=== PATIENT | male | born 1945 | race Caucasian/White ===

== ENCOUNTER 2016-10-16 08:06 | Emergency (ER) | payer OTHER ==
[~2016-10-16] VITALS: Ht 175.3 cm; Wt 70.3 kg
--- NOTE | 2016-10-16 08:34 | ED MVC/FALL/TRAUMA COMPLAINT ---
History of Present Illness General Chief Complaint: Fall Stated Complaint: BACK PAIN, S/P FALL +HEADSTRIKE, -LOC Source: patient, family, old records Exam Limitations: no limitations Vital Signs & Intake/Output Vital Signs & Intake/Output Vital Signs Date Time Temp Pulse Resp B/P B/P Pulse O2 O2 Flow FiO2 Mean Ox Delivery Rate 10/16 1125 97.0 60 20 156/82 100 Room Air 10/16 0951 96.7 64 20 160/80 100 Room Air 10/16 0815 97.2 60 16 129/61 100 Allergies Coded Allergies: No Known Allergies (10/16/16) Reconcile Medications Acetaminophen (Mapap) 500 MG TABLET 2 TAB PO BID PRN PAIN (Reported) Aspirin (Aspirin*) 81 MG TAB.CHEW 1 TAB PO DAILY HEART HEALTH (Reported) Atorvastatin Calcium 20 MG TABLET 1 TAB PO DAILY CHOLESTEROL (Reported) Cholecalciferol (Vitamin D3) (Vitamin D3) 5,000 UNIT TABLET 1 TAB PO DAILY VITAMIN SUPPORT (Reported) Dexlansoprazole (Dexilant) 30 MG CAP.DRFredBP 1 CAP PO DAILY GI (Reported) Diphenhydramine HCl (Benadryl) 25 MG CAPSULE 1 CAP PO QPM PRN UNKNOWN ( Reported) Ferrous Sulfate 325 MG (65 MG IRON) TABLET 1 TAB PO DAILY SUPPLEMENT ( Reported) Hydrochlorothiazide 25 MG TABLET 1 TAB PO DAILY WATER RETENTION (Reported) Multivit-Min/FA/Lycopen/Lutein (Centrum Silver Tablet) 0.4 MG-300 MCG-250 MCG TABLET 1 TAB PO DAILY VITAMIN SUPPORT (Reported) Triage Note: PT STATES HE FELL ON HIS BACK WHILE GOING DOWN STAIRS THIS AM ABOUT 0400. PT STATES HE DID HIT HIS HEAD "JUST A LITTLE TAP". PT DENIES LOC. PT STATES IT'S HIS BACK THAT HURTS AND THAT HE HAS ALWAYS HAD BACK PROBLEMS. Triage Nurses Notes Reviewed? yes HPI: Patient got up to go to the bathroom and then tripped over his slipper and fell onto a concrete floor. Patient states he hit his head "a little bit." Patient denies any loss of consciousness. Patient denies any headache or blurry vision. There is no nausea or vomiting. Patient is complaining of diffuse back pain and bilateral shoulder pain. Patient states she suffers from chronic back and shoulder pain but the fall made it worse. There is no radiation of pain. The pain is throbbing in nature. The pain is 6 out of 10 and increases with movement. There is no weakness or numbness. Past History Travel History Traveled to [place] past 21 day No Medical History Any Pertinent Medical History? see below for history Cardiovascular: hypertension, hyperlipidemia Gastrointestinal: GERD Surgical History Surgical History: non-contributory Psychosocial History What is your primary language [place] Citizen Tobacco Use: Quit >30 days ago ETOH Use: occasional use Illicit Drug Use: denies illicit drug use Family History Hx Contributory? No Review of Systems Review of Systems Constitutional: Reports: no symptoms. Eyes: Reports: no symptoms. Ears, Nose, Throat, Mouth: Reports: no symptoms. Respiratory: Reports: no symptoms. Cardiovascular: Reports: no symptoms. Gastrointestinal/Abdominal: Reports: no symptoms. Genitourinary: Reports: no symptoms. Musculoskeletal: Reports: see HPI, back pain, joint pain. Skin: Reports: no symptoms. Neurological/Psychological: Reports: no symptoms. All Other Systems: Reviewed and Negative Physical Exam Physical Exam General Appearance: well developed/nourished, alert, awake Head: atraumatic, normal appearance Eyes: Bilateral: PERRL, EOMI. Ears, Nose, Throat, Mouth: hearing grossly normal, moist mucous membrane Neck: normal inspection, supple, full range of motion, tender lateral, tender midline Respiratory: normal breath sounds, chest non-tender, no respiratory distress, lungs clear Cardiovascular: regular rate/rhythm, normal peripheral pulses Gastrointestinal: normal bowel sounds, soft, non-tender, no organomegaly Back: normal inspection, normal range of motion Extremities: normal range of motion Neurologic/Psych: no motor/sensory deficits, awake, alert, oriented x 3, normal mood/affect Skin: intact, normal color, warm/dry Core Measures ACS in differential dx? No Severe Sepsis Present: No Septic Shock Present: No Progress Differential Diagnosis: C/T/L spine injury, ext injury, ICH Plan of Care: Orders Procedure Date/time Status CT HEAD WO IV CONTRAST 10/[address] CERV SPINE WO IV CONTRAST 10/17 835 Active Diagnostic Imaging: Viewed by Me: Radiology Read, CT Scan. Discussed w/RAD: Radiology Read, CT Scan. Radiology Impression: PATIENT: ZIGGY TANG PRESENT AGE: 70 PATIENT ACCOUNT NO: [id number] : 44 LOCATION: [facility] ORDERING PHYSICIAN: HOLLIS ANDREWS MD SERVICE DATE: 10/16/16 EXAM TYPE: RAD - XRY-AP PELVIS; XRY-CHEST XRAY, ONE VIEW ONLY; XRY-SHOULDER COMPLETE- LEFT; XRY-SHOULDER COMPLETE-RIGHT; XRY-THORACOLUMBAR SPINE EXAMINATION: XR CHEST XR THORACOLUMBAR SPINE XR SHOULDER, RIGHT XR SHOULDER, LEFT XR PELVIS CLINICAL INFORMATION: 70-year-old male with pain after fall. COMPARISON: None TECHNIQUE: Thoracic spine, AP and lateral views and lumbar spine, AP and lateral views Chest, AP view Right shoulder, 4 views Left shoulder, 4 views Pelvis, AP view FINDINGS: Chest: Lungs are symmetrically expanded and clear. Cardiac silhouette is normal in size. The mediastinal, hilar and diaphragmatic contours are normal. No pneumothorax or pleural effusion. Bone density appears diffusely decreased. Old, healed fracture of the mid third of the right clavicle. Thoracic spine: Bone density appears diffusely decreased. No acute fracture or malalignment. Multilevel disc space narrowing and osteophyte formation of the degenerated spine. No paraspinal soft tissue swelling. Lumbar spine: Bone density appears diffusely decreased. Normal segmentation and normal lordotic curvature of the lumbar spine. L1-L2 [id number] loss of disc space, vacuum disc phenomenon, osteophyte formation and mild concavity of the L2 superior endplate (likely chronic). No acute fracture lucencies are identified. Degenerative disc space narrowing, vacuum disc phenomenon, endplate sclerosis and osteophytosis of L3-L4 L4-L5 and L5-S1. Minimal degenerative retrolisthesis of L4 on L5. Sacrum and sacroiliac joints are unremarkable. Pelvis: Bone density appears diffusely decreased. The osseous pelvic ring is intact. Bones have normal alignment. The articular cartilage space of each hip is maintained. Right shoulder: Bones have normal alignment at the acromioclavicular and glenohumeral joints. Mild osteophyte formation of the acromioclavicular joint. Old, healed fracture of the mid third of the right clavicle. Left shoulder: Mild osteoarthrosis of the acromioclavicular joint. Bones have normal alignment at the acromioclavicular and glenohumeral joints. No acute fracture, subluxation or focal soft tissue swelling. IMPRESSION: 1. No acute radiographic findings in the degenerated thoracolumbar spine. The mild concavity of the L2 superior endplate is likely chronic and related to the severe degenerative disc disease of L1-L2 . No acute fracture lucencies are identified within anterior or posterior elements of the spine. 2. Old, healed fracture of the mid third of the right clavicle. 3. No acute osseous injury within the pelvis. 4. No acute fracture or malalignment at either shoulder. DICTATED BY: AGATA REARDON MD DATE/TIME DICTATED:10/16/16952 DIAL POLISHER:DANNY DATE/TIME TRANSCRIBED:10/16/16952 CONFIDENTIAL, DO NOT COPY WITHOUT APPROPRIATE AUTHORIZATION. <Electronically signed in Other Vendor System> SIGNED BY: AGATA REARDON MD 10/16/16 1005, PATIENT: ZIGGY TANG PRESENT AGE: 70 PATIENT ACCOUNT NO: [id number] : 44 LOCATION: [facility] ORDERING PHYSICIAN: HOLLIS ANDREWS MD SERVICE DATE: 10/16/16 EXAM TYPE: CAT - CT CERV SPINE WO IV CONTRAST; CT HEAD WO IV CONTRAST EXAMINATION: CT HEAD W/O IV CONTRAST CT CERVICAL SPINE W/O IV CONTRAST CLINICAL INFORMATION: 70-year-old male with head injury and pain after fall. COMPARISON: None TECHNIQUE: Head - Contiguous axial imaging of the head was performed from the skull base to the vertex without the administration of intravenous contrast, and axial images are reconstructed at 0.625 mm, 2.5 mm and 5 mm slice thickness. Cervical spine - A volumetric, helical CT acquisition of the cervical spine was obtained without contrast; in addition to the standard set of axial images, multiplanar reformatted images were provided in the coronal and sagittal imaging planes. DLP: 985 mGy-cm (total ) FINDINGS: HEAD: Mild atherosclerotic calcification of vertebral arteries and cavernous carotid arteries. Old lacunar infarctions of the right caudate head and right lentiform nucleus. No evidence of acute intracranial hemorrhage, major vascular territory infarction, focal mass effect or midline shift. Granados to white matter differentiation is well preserved. The ventricles have normal size and configuration. Incidentally noted is prominent choroidal calcification within the atria of the lateral ventricles. There are no extra-axial fluid collections. The calvarium is intact and the mastoid air cells and middle ear cavities are well aerated. Incidentally noted is mucosal thickening of bilateral ethmoid air cells and mucous retention cysts within the sphenoid sinuses. The visualized orbits and globes are intact. There is osteoarthrosis of the left temporomandibular joint. CERVICAL SPINE: There is normal curvature of the cervical spine. The occipital condyles, atlas, axis and atlantoaxial articulation are intact. The cervical vertebral bodies have normal height and alignment. No prevertebral soft tissue swelling. There is degenerative osseous spurring at the atlantoaxial articulation. At C5-C6, there is disc space narrowing, endplate sclerosis, Schmorl's node formation, and traction osteophyte formation. At C6-C7, there is severe loss of disc space, endplate irregularity, endplate sclerosis, Schmorl's node formation and osteophyte formation, and small posterior disc osteophyte complex produces minimal indentation upon the ventral surface of the thecal sac. No significant narrowing of the central canal or neural foramina. There is mild concavity of T1 and T2 vertebral endplates without evidence of acute fracture in the examined upper thoracic spine. There is an old, healed fracture of the mid right clavicle. Paraseptal emphysema at the visualized lung apices. Thyroid gland is unremarkable. IMPRESSION: 1. No acute intracranial pathology. 2. No acute fracture or malalignment in the degenerated cervical spine. 3. Old, healed fracture of the mid right clavicle. 4. Paraseptal emphysema in the visualized lung apices. DICTATED BY: AGATA REARDON MD DATE/TIME DICTATED:10/16/161027 DIAL POLISHER:DANNY DATE/TIME TRANSCRIBED:10/16/161027 CONFIDENTIAL, DO NOT COPY WITHOUT APPROPRIATE AUTHORIZATION. <Electronically signed in Other Vendor System> SIGNED BY: AGATA REARDON MD 10/16/16 104 Comments: X-ray and CAT scan results have been discussed with the patient and his family. Questions have been answered. Patient ambulated in the emergency department with these walker. Departure Departure Disposition: HOME OR SELF CARE Condition: Stable Clinical Impression Primary Impression: Head injury Secondary Impressions: Back pain Referrals: PATIENT HAS NO PRIMARY CARE DR (PCP/Family) Additional Instructions: RETURN FOR ANY CONCERNS Departure Forms: Customer Survey General Discharge Information
[2016-10-16] MEDS ORDERED: FERROUS SULFAT325 M3 PO (09:57)
[2016-10-16] MEDS ORDERED: MAPAP500 M3 PO (09:58)
[2016-10-16] MEDS ORDERED: DEXILANT30 M1 PO (09:58)
[2016-10-16] MEDS ORDERED: ASPIRIN81 M4 PO (09:59)
[2016-10-16] MEDS ORDERED: ATORVASTATIN CA20 M1 PO (09:59)
[2016-10-16] MEDS ORDERED: HYDROCHLOROTHIA25 M1 PO (10:00)
[2016-10-16] MEDS ORDERED: VITAMIN D35000 UNI1 PO (10:00)
[2016-10-16] MEDS ORDERED: BENADRYL25 MG PO (10:01)
[2016-10-16] MEDS ORDERED: CENTRUM SILVER1 EAC3 PO (10:01)
--- NOTE | 2016-10-16 10:05 | RADIOLOGY REPORT ---
EXAMINATION: XR CHEST XR THORACOLUMBAR SPINE XR SHOULDER, RIGHT XR SHOULDER, LEFT XR PELVIS CLINICAL INFORMATION: 70-year-old male with pain after fall. COMPARISON: None TECHNIQUE: Thoracic spine, AP and lateral views and lumbar spine, AP and lateral views Chest, AP view Right shoulder, 4 views Left shoulder, 4 views Pelvis, AP view FINDINGS: Chest: Lungs are symmetrically expanded and clear. Cardiac silhouette is normal in size. The mediastinal, hilar and diaphragmatic contours are normal. No pneumothorax or pleural effusion. Bone density appears diffusely decreased. Old, healed fracture of the mid third of the right clavicle. Thoracic spine: Bone density appears diffusely decreased. No acute fracture or malalignment. Multilevel disc space narrowing and osteophyte formation of the degenerated spine. No paraspinal soft tissue swelling. Lumbar spine: Bone density appears diffusely decreased. Normal segmentation and normal lordotic curvature of the lumbar spine. L1-L2 [id number] loss of disc space, vacuum disc phenomenon, osteophyte formation and mild concavity of the L2 superior endplate (likely chronic). No acute fracture lucencies are identified. Degenerative disc space narrowing, vacuum disc phenomenon, endplate sclerosis and osteophytosis of L3-L4 L4-L5 and L5-S1. Minimal degenerative retrolisthesis of L4 on L5. Sacrum and sacroiliac joints are unremarkable. Pelvis: Bone density appears diffusely decreased. The osseous pelvic ring is intact. Bones have normal alignment. The articular cartilage space of each hip is maintained. Right shoulder: Bones have normal alignment at the acromioclavicular and glenohumeral joints. Mild osteophyte formation of the acromioclavicular joint. Old, healed fracture of the mid third of the right clavicle. Left shoulder: Mild osteoarthrosis of the acromioclavicular joint. Bones have normal alignment at the acromioclavicular and glenohumeral joints. No acute fracture, subluxation or focal soft tissue swelling. IMPRESSION: 1. No acute radiographic findings in the degenerated thoracolumbar spine. The mild concavity of the L2 superior endplate is likely chronic and related to the severe degenerative disc disease of L1-L2 . No acute fracture lucencies are identified within anterior or posterior elements of the spine. 2. Old, healed fracture of the mid third of the right clavicle. 3. No acute osseous injury within the pelvis. 4. No acute fracture or malalignment at either shoulder.
--- NOTE | 2016-10-16 10:43 | CT SCAN REPORT ---
EXAMINATION: CT HEAD W/O IV CONTRAST CT CERVICAL SPINE W/O IV CONTRAST CLINICAL INFORMATION: 70-year-old male with head injury and pain after fall. COMPARISON: None TECHNIQUE: Head - Contiguous axial imaging of the head was performed from the skull base to the vertex without the administration of intravenous contrast, and axial images are reconstructed at 0.625 mm, 2.5 mm and 5 mm slice thickness. Cervical spine - A volumetric, helical CT acquisition of the cervical spine was obtained without contrast; in addition to the standard set of axial images, multiplanar reformatted images were provided in the coronal and sagittal imaging planes. DLP: 985 mGy-cm (total) FINDINGS: HEAD: Mild atherosclerotic calcification of vertebral arteries and cavernous carotid arteries. Old lacunar infarctions of the right caudate head and right lentiform nucleus. No evidence of acute intracranial hemorrhage, major vascular territory infarction, focal mass effect or midline shift. Granados to white matter differentiation is well preserved. The ventricles have normal size and configuration. Incidentally noted is prominent choroidal calcification within the atria of the lateral ventricles. There are no extra-axial fluid collections. The calvarium is intact and the mastoid air cells and middle ear cavities are well aerated. Incidentally noted is mucosal thickening of bilateral ethmoid air cells and mucous retention cysts within the sphenoid sinuses. The visualized orbits and globes are intact. There is osteoarthrosis of the left temporomandibular joint. CERVICAL SPINE: There is normal curvature of the cervical spine. The occipital condyles, atlas, axis and atlantoaxial articulation are intact. The cervical vertebral bodies have normal height and alignment. No prevertebral soft tissue swelling. There is degenerative osseous spurring at the atlantoaxial articulation. At C5-C6, there is disc space narrowing, endplate sclerosis, Schmorl's node formation, and traction osteophyte formation. At C6-C7, there is severe loss of disc space, endplate irregularity, endplate sclerosis, Schmorl's node formation and osteophyte formation, and small posterior disc osteophyte complex produces minimal indentation upon the ventral surface of the thecal sac. No significant narrowing of the central canal or neural foramina. There is mild concavity of T1 and T2 vertebral endplates without evidence of acute fracture in the examined upper thoracic spine. There is an old, healed fracture of the mid right clavicle. Paraseptal emphysema at the visualized lung apices. Thyroid gland is unremarkable. IMPRESSION: 1. No acute intracranial pathology. 2. No acute fracture or malalignment in the degenerated cervical spine. 3. Old, healed fracture of the mid right clavicle. 4. Paraseptal emphysema in the visualized lung apices.
[2016-10-16 11:25] VITALS: BP 156/82
== END 2016-10-16 11:24 ==
LOC: ERH 08:06
DX: S09.90XA Unspecified injury of head, initial encounter (principal); M54.9 Dorsalgia, unspecified; M25.511 Pain in right shoulder; M25.512 Pain in left shoulder; W18.09XA Striking against other object with subsequent fall, initial encounter; Y93.9 Activity, unspecified; Y92.9 Unspecified place or not applicable
CPT/HCPCS: 72080; 72170; 73030-LT; 73030-RT

== ENCOUNTER 2016-10-28 20:52 | Inpatient (IN) | payer OTHER ==
[~2016-10-28] VITALS: Ht 175.3 cm; Wt 68.0 kg
[~2016-10-28 20:52] MED LIST: ASPIRIN81 M4 PO; ATORVASTATIN CA20 M1 PO; BENADRYL25 MG PO; CENTRUM SILVER1 EAC3 PO; DEXILANT30 M1 PO; FERROUS SULFAT325 M3 PO; HYDROCHLOROTHIA25 M1 PO; MAPAP500 M3 PO; VITAMIN D35000 UNI1 PO
--- NOTE | 2016-10-28 21:50 | ED GI/GU/ABDOMINAL COMPLAINT ---
History of Present Illness General Chief Complaint: Male Genitourinary Problems Stated Complaint: BILATERAL BACK AND FLANK PAIN, BLOOD IN URINE Source: patient Exam Limitations: poor historian Vital Signs & Intake/Output Vital Signs & Intake/Output Vital Signs Date Time Temp Pulse Resp B/P B/P Pulse O2 O2 Flow FiO2 Mean Ox Delivery Rate 10/30 1453 97.1 58 20 142/74 98 Room Air 10/30 1055 62 134/58 10/30 0640 97.8 67 20 178/70 97 Room Air 10/29 2218 97.7 51 20 158/70 97 Room Air ED Intake and Output 10/30 0000 10/29 1200 Intake Total 600 600 Output Total 350 250 Balance 250 350 Intake, IV 500 Intake, Oral 600 100 Output, Urine 350 250 Patient 150 lb 150 lb Weight Weight Reported by Patient Reported by Patient Measurement Method Allergies Coded Allergies: No Known Allergies (10/16/16) Reconcile Medications Acetaminophen (Mapap) 500 MG TABLET 2 TAB PO BID PRN PAIN (Reported) Aspirin (Aspirin*) 81 MG TAB.CHEW 1 TAB PO DAILY HEART HEALTH (Reported) Atorvastatin Calcium 20 MG TABLET 1 TAB PO DAILY CHOLESTEROL (Reported) Cholecalciferol (Vitamin D3) (Vitamin D3) 5,000 UNIT TABLET 1 TAB PO DAILY VITAMIN SUPPORT (Reported) Dexlansoprazole (Dexilant) 30 MG CAP.DRFredBP 1 CAP PO DAILY GI (Reported) Diphenhydramine HCl (Benadryl) 25 MG CAPSULE 1 CAP PO QPM PRN UNKNOWN ( Reported) Ferrous Sulfate 325 MG (65 MG IRON) TABLET 1 TAB PO DAILY SUPPLEMENT ( Reported) Hydrochlorothiazide 25 MG TABLET 1 TAB PO DAILY WATER RETENTION (Reported) Multivit-Min/FA/Lycopen/Lutein (Centrum Silver Tablet) 0.4 MG-300 MCG-250 MCG TABLET 1 TAB PO DAILY VITAMIN SUPPORT (Reported) Triage Note: PT REPORTS BILATERAL LOWER BACK PAIN RADIATING INTO ABDOMEN. PT FELL RECENTLY, BUT UNSURE WHEN. PT IS A POOR HISTORIAN. DENIES PAIN TO PALPATION OF BACK, HIPS, ABDOMEN. REPORTS THAT PAIN IS WORSE WITH MOVEMENT AND TWISTING OF TORSO AND CROSSING LEGS. DENIES PAIN WITH URINATION. STATES HIS PENIS IS BROKEN AND URINE SPRAYS IN VARIOUS DIRECTIONS. PT IS TANGENTIAL IN THOUGHT AND DEMONSTRATES RAMBLING SPEECH. DENIES N/V/D. AFEBRILE Triage Nurses Notes Reviewed? yes Onset: Gradual Duration: day(s):, continues in ED Location: BILATERAL BACK PAIN RADIATING TO ABD HPI: Patient presents for evaluation of bilateral back pain, getting worse over the past week to week and a half. Patient is unable to characterize the pain. Patient has been using a medication prescribed after falling for the pain but it isn't providing any relief. Patient denies any dysuria or frequency. Patient states he has constipation issues off and on recently but had a colonoscopy and endoscopy a number of years ago in [place]. Past History Travel History Traveled to [facility] past 21 day No Medical History Any Pertinent Medical History? see below for history Neurological: NONE EENT: NONE Cardiovascular: hypertension, hyperlipidemia Respiratory: NONE Gastrointestinal: GERD Hepatic: NONE Renal: NONE Musculoskeletal: NONE Psychiatric: NONE Endocrine: NONE Surgical History Surgical History: non-contributory Psychosocial History What is your primary language German Tobacco Use: Current Daily Use Daily Tobacco Use Amount/Type: =< 4 Cigarettes daily ETOH Use: occasional use Illicit Drug Use: denies illicit drug use Family History Hx Contributory? No Review of Systems Review of Systems Constitutional: Reports: no symptoms. EENTM: Reports: no symptoms. Respiratory: Reports: no symptoms. Cardiovascular: Reports: no symptoms. GI: Reports: see HPI. Genitourinary: Reports: no symptoms. Musculoskeletal: Reports: see HPI. Skin: Reports: no symptoms. Neurological/Psychological: Reports: no symptoms. Hematologic/Endocrine: Reports: no symptoms. Immunologic/Allergic: Reports: no symptoms. All Other Systems: Reviewed and Negative Physical Exam Physical Exam Gastrointestinal: see below Comments: Gen.: Well-nourished, well-developed, no acute respiratory distress. Head: Normocephalic, atraumatic. Eyes: Normal inspection bilaterally Ears: Normal inspection bilaterally Nose: Normal inspection Throat/mouth : Moist mucosa Neck: Supple, full range of motion, no goiter Heart: Regular rate and rhythm, no murmurs rubs or gallops Lungs: Clear to auscultation bilaterally with normal air entry Chest: Nontender Back: Normal range of motion Abdomen: Soft, nontender, nondistended, normal bowel sounds Extremities: Normal range of motion grossly, equal radial pulses, no cyanosis clubbing or edema Neurologic: Cranial nerves grossly intact, speech is clear Skin: warm and dry Psychiatric: Calm, cooperative, no apparent delusions or hallucinations Core Measures ACS in differential dx? No Severe Sepsis Present: No Septic Shock Present: No Progress Differential Diagnosis: diverticulitis, gastritis, hepatitis, pancreatitis, PUD/ GERD, ureterolithiasis, UTI/pyelo Plan of Care: Orders Procedure Date/time Status BASIC ELECTROLYTES PLUS BUN&CR 10/31 0600 Active Regular Diet 10/30 B Active PHARMACY COMMUNICATION FORM 10/30 0910 Active Therapeutic Activities 10/30 UNK Complete PT EVAL LOW COMPLEX 20 MIN 10/30 UNK Complete Gait Training 10/30 UNK Complete Current Medications Sig/Randy Start time Last Medication Dose Stop Time Status Admin Lidocaine 1 PAT 1400 10/30 1400 AC 10/30 (Lidoderm) 1544 Atorvastatin Calcium 20 MG 1700 10/29 1700 AC 10/30 (Lipitor) 1545 Heparin Sodium 5,000 UNIT Q8 10/29 1648 AC 10/30 (Porcine) 1544 Amlodipine Besylate 5 MG DAILY 10/29 1000 AC 10/30 (Norvasc) 1055 Aspirin 81 MG DAILY 10/29 1000 AC 10/30 (Aspirin) 1055 Acetaminophen 650 MG Q6 PRN 10/29 0330 AC (Tylenol) Oxycodone HCl 5 MG Q6 PRN 10/29 0330 AC 10/30 (Roxicodone) 1235 Laboratory Tests 10/30/16 0720: Anion Gap 11, Estimated GFR > 60, BUN/Creatinine Ratio 11.7 Diagnostic Imaging: Discussed w/RAD: CT Scan. Radiology Impression: PATIENT: ZIGGY TANG PRESENT AGE: 70 PATIENT ACCOUNT NO: [id number] : 44 LOCATION: [facility] ORDERING PHYSICIAN: AMMON MONTENEGRO MD SERVICE DATE: 10/28/16 EXAM TYPE: CAT - CT ABD & PELVIS W IV CONTRAST EXAMINATION: CT ABDOMEN AND PELVIS WITH CONTRAST CLINICAL INFORMATION: Bilateral back pain after fall. Hematuria. Concern for renal injury. COMPARISON: None. TECHNIQUE: Contiguous axial thin section helical images of the abdomen and pelvis were performed following the administration of 95 mL of intravenous Optiray 320. The data set was reformatted in the coronal and sagittal planes and reviewed on an independent workstation. DLP: 280 mGy-cm. FINDINGS: There is dependent bibasilar atelectasis. There is a 1.1 cm nodule within the right lung base on image 52/736. The visualized lung bases are otherwise clear. The visualized portions of the heart are unremarkable. The liver is of normal size and attenuation without focal lesions nor intrahepatic biliary ductal dilation. There are numerous calculi within the gallbladder lumen. There is no wall thickening or discernible pericholecystic fluid. The spleen, pancreas, adrenal glands are unremarkable. Both kidneys are of normal size and attenuation without hydronephrosis or nephrolithiasis. Following the administration of IV contrast, prompt symmetric nephrograms are displayed. There is no abdominal free fluid. There is neither mesenteric nor retroperitoneal lymphadenopathy. There is sigmoid diverticulosis without evidence of diverticulitis the midline otherwise, unremarkable unopacified loops of small and large bowel are identified. There is no pelvic free fluid. The urinary bladder is unremarkable. There is neither pelvic nor inguinal lymphadenopathy. Bone windows: Neither sclerotic nor lytic bone lesions are identified. There is multilevel disc height loss. IMPRESSION: Sigmoid diverticulosis without evidence of diverticulitis. Cholelithiasis without evidence of cholecystitis. DICTATED BY: YUDITH BRUSH MD DATE/TIME DICTATED:03/06 [employer] SUPERVISOR:DANNY DATE/TIME TRANSCRIBED:10/28/162301 CONFIDENTIAL, DO NOT COPY WITHOUT APPROPRIATE AUTHORIZATION. <Electronically signed in Other Vendor System> SIGNED BY: YUDITH BRUSH MD 10/28/16 3317 Initial ED EKG: none Departure Departure Disposition: HOME OR SELF CARE Condition: Stable Clinical Impression Primary Impression: Hyponatremia Referrals: PATIENT HAS NO PRIMARY CARE DR (PCP/Family) Departure Forms: Customer Survey General Discharge Information Admission Note Spoke With: CYNTHIA RODRIGUEZ MD Documentation of Exam: Documentation of any treatments & extenuating circumstances including Concerns Regarding Discharge (functional status, medication knowledge or non-compliance, living conditions, etc.) that warrant an admission rather than observation: Patient has moderate to severe hyponatremia and no current primary care physician to follow up with. I feel this makes the patient a poor candidate for outpatient management. If his sodium were to worsen any further he would begin suffering from weakness tremors seizures and altered mental status. I feel he requires hospitalization for monitoring of his sodium level and controlled correction until it becomes normal. In addition the reason for the patient's hyponatremia should be investigated (secondary to medications, SIADH or excessive fluid intake). Nephrology consultation should be considered. Given this patient's advanced age and medical comorbidities I feel his treatment and recovery may be prolonged and complicated. I feel he will require a multiple day hospitalization.
[2016-10-28 22:16] LABS: ABSOLUTE BASOPHIL COUNT 0 /CUMM (0.0-0.2); ABSOLUTE EOSINOPHIL COUNT 0.8 /CUMM (0.0-0.7); ABSOLUTE MONOCYTE COUNT 0.5 /CUMM (0.10-0.60); BASOPHIL % 0.2 % (0.0-2.0); EOSINOPHIL % 10.3 % (0-5)
[2016-10-28 22:19] LABS: ABSOLUTE GRANULOCYTE CT 5.6 /CUMM (1.4-6.5); ABSOLUTE LYMPH COUNT 1.1 /CUMM (1.2-3.4); GRANULOCYTE % 70.3 % (42.2-75.2); MEAN CORPUSCULAR HGB 29.5 PG (27.0-31.0); MEAN CORPUSCULAR HGB CONC 34.7 G/DL (33.0-37.0); MEAN PLATELET VOLUME 5.9 FL (7.4-10.4); PLATELET COUNT 420 /CUMM (130-400); RBC DISTRIBUTION WIDTH 15.2 % (11.5-14.5); RED BLOOD CELL CT 3.77 /CUMM (4.70-6.10); WHITE BLOOD CELL COUNT 7.9 /CUMM (4.8-10.8)
--- NOTE | 2016-10-28 23:15 | CT SCAN REPORT ---
EXAMINATION: CT ABDOMEN AND PELVIS WITH CONTRAST CLINICAL INFORMATION: Bilateral back pain after fall. Hematuria. Concern for renal injury. COMPARISON: None. TECHNIQUE: Contiguous axial thin section helical images of the abdomen and pelvis were performed following the administration of 95 mL of intravenous Optiray 320. The data set was reformatted in the coronal and sagittal planes and reviewed on an independent workstation. DLP: 280 mGy-cm. FINDINGS: There is dependent bibasilar atelectasis. There is a 1.1 cm nodule within the right lung base on image 52/736. The visualized lung bases are otherwise clear. The visualized portions of the heart are unremarkable. The liver is of normal size and attenuation without focal lesions nor intrahepatic biliary ductal dilation. There are numerous calculi within the gallbladder lumen. There is no wall thickening or discernible pericholecystic fluid. The spleen, pancreas, adrenal glands are unremarkable. Both kidneys are of normal size and attenuation without hydronephrosis or nephrolithiasis. Following the administration of IV contrast, prompt symmetric nephrograms are displayed. There is no abdominal free fluid. There is neither mesenteric nor retroperitoneal lymphadenopathy. There is sigmoid diverticulosis without evidence of diverticulitis the midline otherwise, unremarkable unopacified loops of small and large bowel are identified. There is no pelvic free fluid. The urinary bladder is unremarkable. There is neither pelvic nor inguinal lymphadenopathy. Bone windows: Neither sclerotic nor lytic bone lesions are identified. There is multilevel disc height loss. IMPRESSION: Sigmoid diverticulosis without evidence of diverticulitis. Cholelithiasis without evidence of cholecystitis.
--- NOTE | 2016-10-29 03:03 | History & Physical ---
ROCIO LINDSAY,[facility] 10/29/16 0302: General Information and HPI MD Statement: I have seen and personally examined ZIGGY TANG and documented this H&P. The patient is a 70 year old M who presented with a patient stated chief complaint of [back pain]. Source of Information: patient Exam Limitations: no limitations History of Present Illness: The patient is a 70-year-old male with past medical history of HTN, HLD, GERD, previously seen on 10/16 in the ED for a mechanical fall now presenting with complaints of bilateral lower back pain radiating to his abdomen. The patient states that his pain started 2 weeks ago during his last admission to the emergency department when he fell on his hip and then his back. He is now complaining of 3 days of worsening back pain. When asked, he is unsure if this is new back pain or worsening old back pain. He states that he has had no recent injuries. He states his pain is deep in the bones. He is also complaining of difficulties urinating. The nurse in the emergency department stated that he had also complained of a broken penis and that he is urinating everywhere. The nurse states that the patient had a phimosis and she was unable to peel back the foreskin. He denies any urinary burning, frequency, or hematuria. The patient moved from [place] 4 months ago. The patient has been unable to find a primary care physician. He lives in the basement of his rajat and rajat's . He states that that they have been trying to take care of him. Allergies/Medications Allergies: Coded Allergies: No Known Allergies (10/16/16) Past History Travel History Traveled to [place] past 21 day No Medical History Neurological: NONE EENT: NONE Cardiovascular: hypertension, hyperlipidemia Respiratory: NONE Gastrointestinal: GERD Hepatic: NONE Renal: NONE Musculoskeletal: NONE Psychiatric: NONE Endocrine: NONE Surgical History Surgical History: non-contributory Past Family/Social History Psychosocial History Where do you live? Home ([facility] [place]) Smoking Status: Current Everyday Smoker (2-3 cigs/day x 55years) ETOH Use: occasional use Illicit Drug Use: denies illicit drug use Functional Ability Ambulation: cane (feels unsteady) Review of Systems Review of Systems Constitutional: Denies: chills, diaphoresis, fever. Cardiovascular: Denies: chest pain, palpitations. Respiratory: Denies: short of breath. GI: Reports: abdominal pain (with bowel movements). Genitourinary: Denies: dysuria, frequency, hematuria. Exam & Diagnostic Data Last 24 Hrs of Vital Signs/I&O Vital Signs Date Time Temp Pulse Resp B/P B/P Pulse O2 O2 Flow FiO2 Mean Ox Delivery Rate 10/28 2347 96.5 58 18 173/74 100 Room Air 10/28 2153 97 Room Air 10/28 2109 97.1 60 16 145/78 100 Room Air Intake & Output 10/29 0800 10/29 0000 10/28 1600 Intake Total Output Total Balance Patient 150 lb 150 lb Weight Weight Reported by Patient Reported by Patient Measurement Method Physical Exam General Appearance Alert, Oriented X3, Cooperative, No Acute Distress HEENT Atraumatic Cardiovascular Regular Rate, Normal S1, Normal S2, No Murmurs Lungs Clear to Auscultation, Normal Air Movement Abdomen Soft, No Tenderness Neurological strength 5/5 of lower extremities Extremities No Cyanosis, No Edema Reproductive (MALE) paraphimosis per nurse, Patient has a urinal attached to his penis. We asked if we could examine his penis but the patient denied our request. He did not want the urinal to be removed sine it is helping him urinate. Diagnostic Data Other Results CT ABD PELVIS FINDINGS: There is dependent bibasilar atelectasis. There is a 1.1 cm nodule within the right lung base on image 52/736. The visualized lung bases are otherwise clear. The visualized portions of the heart are unremarkable. The liver is of normal size and attenuation without focal lesions nor intrahepatic biliary ductal dilation. There are numerous calculi within the gallbladder lumen. There is no wall thickening or discernible pericholecystic fluid. The spleen, pancreas, adrenal glands are unremarkable. Both kidneys are of normal size and attenuation without hydronephrosis or nephrolithiasis. Following the administration of IV contrast, prompt symmetric nephrograms are displayed. There is no abdominal free fluid. There is neither mesenteric nor retroperitoneal lymphadenopathy. There is sigmoid diverticulosis without evidence of diverticulitis the midline otherwise, unremarkable unopacified loops of small and large bowel are identified. There is no pelvic free fluid. The urinary bladder is unremarkable. There is neither pelvic nor inguinal lymphadenopathy. Bone windows: Neither sclerotic nor lytic bone lesions are identified. There is multilevel disc height loss. IMPRESSION: Sigmoid diverticulosis without evidence of diverticulitis. Cholelithiasis without evidence of cholecystitis. Assessment/Plan Assessment: The patient is a 70-year-old male with past medical history of HTN, HLD, GERD, previously seen on 10/16 in the ED for a mechanical fall now presenting with complaints of bilateral lower back pain radiating to his abdomen found to have degenerative disk disease of L1-L2, paraphimosis and hyponatremia. As Ranked By This Provider Problem List: 1. Hyponatremia Assessment/Plan Sodium was found to be 123. We will place urine studies to determine the cause of his hyponatermia. The patient appears to be euvolemic, hypotonic hyponatremia. We are holding his HCTZ and will repeat am labs. Consider gradually correcting his sodium with fluid restriction if it is not corrected after stopping hctz. -f/u urine lytes and osmolality -f/u am labs -consider gradually correcting his sodium with fluid restriction if it is not corrected s/p holding hctz 2. Back pain Assessment/Plan The patient is a 70-year-old male with past medical history of HTN, HLD, GERD, previously seen on 10/16 in the ED for a mechanical fall now presenting with complaints of bilateral lower back pain radiating to his abdomen. CT abd/pelvis revealed chronic degenerative changes. We will provide him with appropriate physical therapy and pain management. -pain scale with acetaminophen (1-3), oxycodone (4-6), morphine (7-10) -place PT for patient 3. HTN (hypertension) Assessment/Plan We are currently holding his hydrochlorothiazide due to his hypernatremia. We will begin him on Norvasc instead until his hypertension. -Start amlodipine 5 mg by mouth 4. HLD (hyperlipidemia) Assessment/Plan We will continue him on his home medications. -Continue atorvastatin 20 mg by mouth 5. Paraphimosis Assessment/Plan The patient complained of a broken penis and problems with urinating everywhere. He was found to have a paraphimosis. We will need to establish a PCP for him. He should f/u outpt to address his paraphimosis. -establish PCP -f/u with outpt management for paraphimosis 6. DVT prophylaxis Assessment/Plan Mechanical 7. Full code status Assessment/Plan Full code Core Measures/Miscellaneous Acute Coronary Syndrome ACS Diagnosis: No Cerebrovascular Accident CVA/TIA Diagnosis: No Congestive Heart Failure CHF Diagnosis: No VTE (View Protocol) VTE Risk Factors: Acute medical illness, Age > 40 [facility] prophylaxis d/t: No contraindications No VTE Pharm Prophylaxis d/t: No contraindications VTE Diagnosis: No VTE Type: NONE VTE Confirmed by (Test): NONE Sepsis (View Protocol) Severe Sepsis Present: No Septic Shock Septic Shock Present: No Miscellaneous Documentation Attending Case Discussed With: CYNTHIA SNIDER MD Primary Care Physician: PATIENT HAS NO PRIMARY CARE DR Patient sees these Specialists NA Level of Patient Care: General Medicine BARRETT DARLING MD,[facility] 10/29/16 0401: Resident Review Statement Resident Statement: examined this patient, discussed with internet marketing coordinator, agreed with internet marketing coordinator, reviewed EMR data (avail) Other Findings: 70-year-old male with past medical history significant for back pain status post mechanical fall came to emergency department on 10/16/2016, hypertension, hyperlipidemia, GERD came to emergency department with chief complaint of bilateral lower back pain radiating to his abdomen. Vitals in emergency department, patient afebrile, no tachycardia, no tachypnea, systolic blood pressure 145-173 and diastolic 74-78, oxygen saturation of 97-100 % on room air. On examination, patient was alert and oriented not in any acute distress, comfortably lying in the bed. S1 and S2 audible without any murmurs, overall clear lungs, grossly intact neurological examination, no focal abdominal tenderness on examination at the back, no erythema, no swelling. Significant labs in emergency department no leukocytosis, white count of 7.9, hemoglobin 11.1 and hematocrit 32that available to compare, platelet count of 420, significant electrolyte abnormality of hyponatremia with sodium of 123, potassium of 3.6, chloride of 87, total bili of 1.5, serum osmolality added on and pending. Urine lites and urine osmolality ordered and pending Imaging showed, Sigmoid diverticulosis without evidence of diverticulitis. Cholelithiasis without evidence of cholecystitis Patient was admitted on general medicine so for the management of following problems #1 Hyponatremia #2 chronic back pain with degenerative thoracolumbar spine and severe degenerative disc disease of L1-L2 #3 history of hypertension and hyperlipidemia Hyponatremia We don't have patient's a sling sodium levels available. Patient was admitted with a hyponatremia of 123, serum osmolarity of 255, urine osmolality 477, urine random sodium 118. This picture most likely suggests hyponatremia secondary to decreased by mouth intake in the setting of taking hydrochlorothiazide. We will hold off on hydrochlorothiazide for now and repeat BEP in the morning. Chronic back pain status post recent mechanical fall Patient had a mechanical fall recently On 10/16/2016, imaging was done in emergency department to rule out the possibility of any acute fractures. Patient has degenerative thoracolumbar spine and severe degenerative disc disease of L1-L2. He denied any history of recent trauma or and other fall. We will provide him with appropriate physical therapy and pain management. Patient is full code Patient is on heart healthy diet Patient is on heparin for DVT prophylaxis Patient is on pain management CYNTHIA SNIDER 10/29/16 0532: Attending MD Review Statement Attending Statement Attending MD Statement: examined this patient, discuss w/resident/PA/WEBMASTER, agreed w/resident/PA/WEBMASTER, reviewed EMR data (avail), reviewed images, amended to note Attending Assessment/Plan: CC Back pain PMH: HTN, HLD, GERD Patient came to ER for lower back pain radiating to abdomen, he recently fell down and was evaluated in ER. Patient is poor historian. He came back again for back pain, worse with movements, no neurological weakness. He moved from [place] 4 months back, after lost his Thanksgiving last year. He is to follow-up with primary care physician at that place but did not find a doctor after moving back. He ambulates with cane at home and feels that his gait is unsteady so he had been falling frequently. He lives with his rajat and rajat's , in basement of their house, appears independent to take care of his daily activities. Patient states that he had some penile trauma in the past after that he had been facing problem with urinary stream. Denies any urinary burning, frequency, blood in the urine. 14 point ROS unremarkable Vitals: Afebrile, pulse in 60s, RR 16, blood pressure 145/78, saturating well on room air. On exam: A O 3, cooperative, cognition intact, no acute distress, neck supple, JVD normal, no lymphadenopathy, mucosa moist, no focal neurological deficit, no dependent edema, no obvious skin rashes or inflammation CVS: S1-S2, RRR. RS: Clear to auscultate bilaterally. Abdomen: Soft, NT, ND, bowel sounds present. exam: ? Paraphimosis Labs: Hemoglobin 11.1, hematocrit 32.0, platelet 420, sodium 123, chloride 87, bicarbonate 24, BUN 10, creatinine 0.7, on and 12, bilirubin 1.5, AST 24, AST 24 , alkaline phosphatase 91 CT abdomen and pelvis: 1. Sigmoid diverticulosis without evidence of diverticulitis. 2. Cholelithiasis without evidence of cholecystitis. RAD - XRY-AP PELVIS; XRY-CHEST XRAY, ONE VIEW ONLY; XRY-SHOULDER COMPLETE-LEFT; XRY-SHOULDER COMPLETE-RIGHT; XRY-THORACOLUMBAR SPINE (October 16) 1. No acute radiographic findings in the degenerated thoracolumbar spine. The mild concavity of the L2 superior endplate is likely chronic and related to the severe degenerative disc disease of L1-L2 . No acute fracture lucencies are identified within anterior or posterior elements of the spine. 2. Old, healed fracture of the mid third of the right clavicle. 3. No acute osseous injury within the pelvis. 4. No acute fracture or malalignment at either shoulder. A and P 70 year old male looks much older than his age, past medical history significant for hypertension and GERD HLD, no medical records available, recently moved from [place] 4 months back, yet to establish primary, presented in ER for back pain. Patient had a fall on October 16, at that time he was evaluated in ER. Patient comes back for persistent back pain radiating to abdomen. Is no focal neurological deficit patient hemodynamically stable, no evidence of renal calculi. Back pain probably secondary to chronic degenerative changes shown in his previous imaging. Meanwhile patient was found to have hyponatremia sodium of 123, previous levels unknown. Appears euvolumic, hypotonic hyponatremia. Admit to General medicine floor. Patient received 500 mL of normal saline in ER. Will hold his hydrochlorothiazide, repeat labs in a.m., tried to gradually correct sodium with probable fluid restriction if not corrected after stopping HCTZ. Start amlodipine. Patient has chronic anemia, on iron supplementation, was evaluated with EGD and colonoscopy in [place]. Patient will need primary care to follow upon discharge. DYAN LINDSAY, [facility] 11/02/16 0013: General Information and HPI Allergies/Medications Home Med list Acetaminophen (Mapap) 500 MG TABLET 2 TAB PO BID PRN PAIN (Reported) Amlodipine Besylate 5 MG TABLET 1 TAB PO DAILY hypertensino .. Aspirin (Aspirin*) 81 MG TAB.CHEW 1 TAB PO DAILY HEART HEALTH (Reported) Atorvastatin Calcium 20 MG TABLET 1 TAB PO DAILY CHOLESTEROL (Reported) Cholecalciferol (Vitamin D3) (Vitamin D3) 5,000 UNIT TABLET 1 TAB PO DAILY VITAMIN SUPPORT (Reported) Dexlansoprazole (Dexilant) 30 MG CAP.DRFredBP 1 CAP PO DAILY GI (Reported) Diphenhydramine HCl (Benadryl) 25 MG CAPSULE 1 CAP PO QPM PRN allergy ( Reported) Ferrous Sulfate 325 MG (65 MG IRON) TABLET 1 TAB PO DAILY SUPPLEMENT ( Reported) Lidocaine (Lidoderm) 5 % ADH..PATCH 1 PAT EXT DAILY pain .. Multivit-Min/FA/Lycopen/Lutein (Centrum Silver Tablet) 0.4 MG-300 MCG-250 MCG TABLET 1 TAB PO DAILY VITAMIN SUPPORT (Reported) Oxycodone HCl/Acetaminophen (Percocet 5-325 MG Tablet) 5 MG-325 MG TABLET 1 TAB PO BID PRN severe pain please take your medications as prescribed Addendum Addendum Patient was assigned to me by mistake. Admitting attending is Dr. Snider.
--- NOTE | 2016-10-29 05:34 | Admission Certification ---
Admission Certification Certification Statement - As attending physician, I certify that at the time of - admission, based on clinical presentation, severity of - symptoms, need for further diagnostic testing and - therapeutic interventions, and risk of adverse outcomes - without in-hospital treatment, in my clinical assessment, - this patient requires an acute hospital stay for a minimum - of two nights or longer. I have also considered psychsocial - factors such as support system, advanced age, financial - issues, cognitive issues, and failed out-patient treatments, - past re-admission history, safety of patient, and lack of - compliance as applicable. Specific rationale supporting this admission is: Hyponatremia
[2016-10-29 07:14] LABS: ABSOLUTE BASOPHIL COUNT 0.1 /CUMM (0.0-0.2); ABSOLUTE EOSINOPHIL COUNT 0.7 /CUMM (0.0-0.7); ABSOLUTE GRANULOCYTE CT 3.5 /CUMM (1.4-6.5); ABSOLUTE MONOCYTE COUNT 0.4 /CUMM (0.10-0.60); BASOPHIL % 1.1 % (0.0-2.0); EOSINOPHIL % 12.9 % (0-5); GRANULOCYTE % 60.4 % (42.2-75.2); HEMATOCRIT 29.5 % (42-52); MEAN CORPUSCULAR HGB 29.5 PG (27.0-31.0); MEAN CORPUSCULAR HGB CONC 35.1 G/DL (33.0-37.0); MEAN CORPUSCULAR VOLUME 84.1 FL (80.0-94.0); MEAN PLATELET VOLUME 5.5 FL (7.4-10.4); PLATELET COUNT 384 /CUMM (130-400); RBC DISTRIBUTION WIDTH 15.1 % (11.5-14.5); WHITE BLOOD CELL COUNT 5.8 /CUMM (4.8-10.8)
[2016-10-29 08:49] VITALS: BP 163/70
--- NOTE | 2016-10-29 12:14 | PN- Att Addend ---
Attending Addendum Attending Brief Note Patient lying comfortably in bed not in any acute distress. Complains of mild low back pain. Reports that pain began after a fall at home. He was in the emergency room about 2 weeks ago after a fall thoracolumbar imaging at that time showed old healed fracture mid third right clavicle and CVA degenerative disease L1-L2. No acute fracture noted. The complaints of worsening back pain and return for evaluation. Reports that this finding ambulated to take cane. He denies any focal muscle weakness. He offers no new complaints this morning. Patient has a history of paraphimosis going on for several years. Apparently he denies any difficulty urinating. Denies any penile pain. He however would like to be referred to a urologist. Reports good appetite and good oral intake. Vital Signs Date Time Temp Pulse Resp B/P B/P Pulse O2 O2 Flow FiO2 Mean Ox Delivery Rate 10/29 0943 97.0 55 16 163/70 10/29 0849 97.0 55 16 163/70 96 Room Air 10/29 0759 97.0 55 16 163/70 96 Room Air 10/28 2347 96.5 58 18 173/74 100 Room Air 10/28 2153 97 Room Air 10/28 2109 97.1 60 16 145/78 100 Room Air Gen. appearance: Not in acute distress HEENT: Anicteric, no pallor Heart: S1-S2 regular Lungs: Clear to auscultation bilaterally Abdomen: Soft, nontender with normal bowel sounds Extremities: No pedal edema Neurologic: Power is 5 over 5 all extremities. Back: No obvious spinal deformity. No tenderness over the bony spine. He does complain of tenderness in the lumbar region just lateral to the spine bilaterally. Laboratory Tests 10/29/16 0600: Anion Gap 9, Estimated GFR > 60, BUN/Creatinine Ratio 13.3, Iron 55, TIBC 274, Ferritin 115.0, TSH 3.250, Free T4 0.89, CBC w Diff NO MAN DIFF REQ, RBC 3.50 L , MCV 84.1, MCH 29.5, RDW 15.1 H, MPV 5.5 L, Gran % 60.4, Lymphocytes % 17.9 L, Monocytes % 7.7, Eosinophils % 12.9 H, Basophils % 1.1, Absolute Granulocytes 3.5, Absolute Lymphocytes 1.0 L, Absolute Monocytes 0.4, Absolute Eosinophils 0.7, Absolute Basophils 0.1, PUBS MCHC 35.1 10/28/165: Urinalysis LIGHT H, Urine Color YEL, Urine Clarity CLEAR, Urine pH 7.0, Ur Specific [place] 1.010, Urine Protein TRACE H, Urine Ketones TRACE H, Urine Nitrite NEG, Urine Bilirubin NEG, Urine Urobilinogen 4.0 H, Ur Leukocyte Esterase TRACE H, Ur Microscopic SEDIMENT EXAMINED, Urine RBC 1-3, Urine WBC 1- 3 H, Ur Epithelial Cells FEW, Urine Bacteria RARE H, Hyaline Casts 3-5 H, Urine Mucus FEW, Urine Hemoglobin TRACE-INTACT H, Urine Glucose NEG 10/28/162314: Urine Osmolality 477, Ur Random Creatinine 86.1, Ur Random Sodium 118 H, Ur Random Potassium 44.3, Fraction Sodium Excret 0.8 10/28/162206: Anion Gap 12, Estimated GFR > 60, BUN/Creatinine Ratio 14.3, Glucose 79, Serum Osmolality 255 L, Calcium 9.2, Total Bilirubin 1.5 H, AST 24, ALT 24, Alkaline Phosphatase 91, Creatine Kinase 39 L, Total Protein 6.9, Albumin 4.0, Globulin 2.9, Albumin/Globulin Ratio 1.4, Lipase 128, Vitamin B12 980 H, CBC w Diff NO MAN DIFF REQ, RBC 3.77 L, MCV 85.0, MCH 29.5, RDW 15.2 H, MPV 5.9 L, Gran % 70.3, Lymphocytes % 13.3 L, Monocytes % 5.9, Eosinophils % 10.3 H, Basophils % 0.2, Absolute Granulocytes 5.6, Absolute Lymphocytes 1.1 L, Absolute Monocytes 0.5, Absolute Eosinophils 0.8, Absolute Basophils 0, PUBS MCHC 34.7 Problems: 1. Low back pain Status post fall 2. Hyponatremia 3. Hypertension Plan -Due to his ongoing complaint of back pain recommend imaging with CT scan of the lumbosacral spine to rule out an occult fracture. -Pain management with Lidoderm patch. Continue oxycodone started in the emergency room. He also has morphine ordered for breakthrough pain. -Use nonpharmacological therapies such as warm compress as well and therapeutic touch -His hyponatremia may be secondary to diuretic use. This has been discontinued. Repeat serum chemistry later on today.
--- NOTE | 2016-10-29 15:29 | CT SCAN REPORT ---
EXAMINATION: CT LUMBAR SPINE WITHOUT CONTRAST CLINICAL INFORMATION: Sacral vertebral fractures. COMPARISON: Abdominal CT 10/28/2016 and lumbar spine radiographs 10/16/2016. TECHNIQUE: Helical non-contrast CT images were obtained through the lumbar spine and 1.25 and 2.5 mm axial reconstructions were reviewed along with sagittal and coronal MPRs. FINDINGS: There is superior and inferior endplate height loss at L2, along the inferior endplate secondary to Schmorl's node herniation which appears stable in comparison to the 10/16/2016 CT. There is mild superior endplate height loss at L1 that is not definitively seen on the previous radiographs and that can be followed with MRI in the setting of back pain. There is a chronic appearing superior endplate Schmorl's node at L4. No definite sacral fractures are identified. The sacroiliac joints are unremarkable. Excretory contrast within the renal collecting systems bilaterally. There is abdominal aortic atherosclerotic calcification. There is sigmoid diverticulosis and a small amount of nonspecific free fluid within the pelvis. Lumbar alignment is maintained. There is severe disc space loss at L1-L2, L3-L4, and there is moderate disc space loss at L4-L5 and L5-S1. At L4-L5 there is a diffuse disc osteophyte complex that along with bilateral hypertrophic facet arthropathy results in moderate right and mild left foraminal stenosis. No additional significant foraminal stenosis within the lumbar spine. No high-grade bony foraminal stenosis is evident. IMPRESSION: There is mild superior endplate compression deformity at L1, not definitively seen on previous lumbar spine radiographs from 10/16/2016 and the can be more definitively assessed with a lumbar spine MRI to exclude a superior endplate compression fracture. The degree of superior and inferior endplate height loss at L2 appears stable in comparison to the 10/16/2016 radiographs with no more remote studies available to definitively age this fracture. No sacral fractures are identified.
[2016-10-29 17:30] VITALS: BP 130/60
[2016-10-29 22:18] VITALS: BP 158/70
--- NOTE | 2016-10-30 06:00 | PN- Housestaff ---
DAHIANAXENIAKALI 10/30/16 0559: Subjective Follow-up For: back pain Complaints: no complaints Subjective: Mr. Hay was comfortable this morning. Did not have any complains. Blood pressure was slightly elevated. Vitals were stable. Did not have any abdominal pain, nausea or vomiting. Discussed with him and his family about the treatment plan. Requested the patient's family to bring in old records. Review of Systems Constitutional: Reports: see HPI. Objective Last 24 Hrs of Vital Signs/I&O Vital Signs Date Time Temp Pulse Resp B/P B/P Pulse O2 O2 Flow FiO2 Mean Ox Delivery Rate 10/29 2218 97.7 51 20 158/70 97 Room Air 10/29 1730 97.6 55 20 130/60 97 Room Air 10/29 1641 96.9 55 20 153/67 98 Room Air 10/29 0943 97.0 55 16 163/70 10/29 0849 97.0 55 16 163/70 96 Room Air 10/29 0759 97.0 55 16 163/70 96 Room Air Intake & Output 10/30 0800 10/30 0000 10/29 1600 Intake Total 480 720 Output Total 800 200 400 Balance -800 280 320 Intake, IV 500 Intake, Oral 480 220 Output, Urine 800 200 400 Patient 150 lb Weight Weight Reported by Patient Measurement Method Physical Exam General Appearance: No Acute Distress Other Physical Findings: General Exam: AAOx3, No acute distress, Skin: No rashes, no breakdown HEENT: PERRLA, EOMI Neck: Supple, No JVD No cervical lymphadenopathy CVS: Reg Rate, Normal S1,S2, No MGR Resp: Normal air entry, no ronchi/rales Abdomen: Soft, No tenderness, Normal Bowel Sounds, paraphimosis. Neuro: Normal Speech, Strength 5/5 b/l x 4 extremities, Sensation intact, CN III -XII NL, Reflexes 2+ Extremities: No cyanosis, pedal edema Current Medications: Current Medications Sig/Randy Start time Last Medication Dose Route Stop Time Status Admin Acetaminophen 650 MG Q6 PRN 10/29 0330 AC PO Amlodipine Besylate 5 MG DAILY 10/29 1000 AC 10/29 PO 0943 Aspirin 81 MG DAILY 10/29 1000 AC 10/29 PO 0943 Atorvastatin Calcium 20 MG 1700 10/29 1700 AC 10/29 PO 2019 Heparin Sodium 5,000 UNIT Q8 10/29 1648 AC 10/30 (Porcine) SC 0547 Lidocaine 1 PAT DAILY 10/29 1440 AC 10/29 EXT 1527 Morphine Sulfate 1 MG Q6-PRN PRN 10/29 0330 10/30 IV 0543 Oxycodone HCl 5 MG Q6 PRN 10/29 0330 AC PO Last 24 Hrs of Lab/Main Results Last 24 Hrs of Labs/Mics: Laboratory Tests 10/29/16 1803: Anion Gap 11, Estimated GFR > 60, BUN/Creatinine Ratio 13.3 10/29/16 0600: Anion Gap 9, Estimated GFR > 60, BUN/Creatinine Ratio 13.3, Iron 55, TIBC 274, Ferritin 115.0, TSH 3.250, Free T4 0.89, CBC w Diff NO MAN DIFF REQ, RBC 3.50 L , MCV 84.1, MCH 29.5, RDW 15.1 H, MPV 5.5 L, Gran % 60.4, Lymphocytes % 17.9 L, Monocytes % 7.7, Eosinophils % 12.9 H, Basophils % 1.1, Absolute Granulocytes 3.5, Absolute Lymphocytes 1.0 L, Absolute Monocytes 0.4, Absolute Eosinophils 0.7, Absolute Basophils 0.1, PUBS MCHC 35.1 Assessment/Plan Assessment: He is a 70-year-old man with a past history of hypertension, hyperlipidemia is being evaluated for worsening back pain times approximately 2 weeks. The history is very unclear, but pain started around the same time when he had a mechanical fall in his basement, and he landed on his back. No head injury was reported at that time. Lives with his stepson and his . Recently moved from [place], and has most of his records in [place]. Reported unsteady gait. Also reported poor urinary stream likely from paraphimosis. At the time of admission, vitals were stable, he was afebrile pulse rate 62, respirations 16, blood pressure 145/78, 100% on room air. Lab findings indicated WBC 7.9, hemoglobin 11.1 (baseline unknown), platelets 420, abnormal electrolytes-sodium 123 (hyponatremia-acute versus chronic unknown), which improved to 126 within 24 hours. Normal renal function BUN 7, serum creatinine 0.6. Potassium 3.8. Serum osmolality 255, urine osmolality 477, urine random sodium 118, FENa 0.8. Radiological findings-CT abdomen and pelvis-revealed sigmoid diverticulosis without evidence of diverticulitis. Cholelithiasis without evidence of cholecystitis was noted. CT lumbar spine without contrast-revealed mild superior endplate compression deformity at L1, suggestive of endplate compression fracture (inadequate evidence, would need an evaluation by MRI), superior and inferior endplate height loss at L2. No sacral fractures were noted. Differential diagnosis: #1 hyponatremia #2 anemia #3 fall resulting in L1 compression fracture Below is the problem list and plan: #1 multiple falls-likely resulting in the back pain. Evidence of L1 compression fracture, although inadequate, would need conservative management. Lidoderm patch, and opiates as needed. Vitamin B12, TSH within normal limits. Fall precautions. PT evaluation. #2 hyponatremia-attributed this pattern of euvolemic hypotonic hyponatremia likely from hydrochlorothiazide use. Plan was to watch of the patient from HIDA chlorothiazide for at least 24 hours. Sodium 123--> 126 in the last 24 hours, likely suggestive of any other etiology such as increased ADH production. Other causes such as increased fluid intake, chronic hyponatremia are still in differential to be ruled out. Thiazide diuretic has a very short half life, and would have been normalized by now. Keep the patient on fluid restriction to rule out elevated areas production. #3 anemia-check Hemoccult. Baseline unknown at this time. Iron 55, TIBC 274, ferritin 115. Continue to monitor closely. #4 DVT prophylaxis-subcutaneous heparin. #5 Paraphimosis- urology evaluation at the time of discharge. #5 discharge disposition-the patient continues to be stable, and pain is adequately controlled, would be able to discharge in the a.m. Problem List: 1. HLD (hyperlipidemia) 2. HTN (hypertension) 3. Paraphimosis 4. DVT prophylaxis Pain Ratin Pain Location: back Pain Goal: Pain 4 or less Pain Plan: tylenol prn oxycodone prn Tomorrow's Labs & Rationales: no labs. JOSE NUR MD 10/30/16 1155: Attending MD Review Statement Attending Statement Attending MD Statement: examined this patient, discuss w/resident/PA/CITY SURVEYOR, agreed w/resident/PA/CITY SURVEYOR, reviewed EMR data (avail), discussed with nursing, discussed with case mgmt, amended to note Attending Assessment/Plan: Patient similarly examined. Feels better today. Observed ambulating around the unit with physical therapy only with the aid of a cane. Reports that his back pain is improving on current regimen we have him on. CT of the lumbar region which was suggestive of lumbar compression fracture. We will manage this conservatively as he is doing better with pain medications. His hyponatremia is improving with discontinuation of hydrochlorothiazide. We'll continue to monitor off this diuretic. His blood pressure however has been trending upward so we will start him on amlodipine for blood pressure control. If his sodium level continues to trend up tomorrow he may be discharged home with outpatient follow-up in a week to reevaluate his serum chemistry. His elevated urine is osmolarity suggest SIADH as a cause of his hyponatremia. We'll continue to evaluate for improvement of his sodium with fluid restriction and discontinuation of his hydrochlorothiazide.
[2016-10-30 06:40] VITALS: BP 178/70
[2016-10-30 14:53] VITALS: BP 142/74
[2016-10-30 22:25] VITALS: BP 145/73
--- NOTE | 2016-10-31 06:06 | PN- Housestaff ---
KRANTHI TALBOT 10/31/16 0606: Subjective Follow-up For: - back pain Complaints: no complaints Subjective: The patient is comfortable this morning. Did not have any complaints. Vitals were stable overnight. Blood pressure was stable. Reviewed his records that were brought in his family members. As per his previous medical records, he is to resume has always been in the range of around 130s, and has been having paraphimosis. Reviewed all medications, and the adjustments. note, the decision was made to discharge him. Per the patient, when he sat up in his chair, still had low back pain; but did not have any neurological symptoms. No loss of bladder or bowel function, no loss of sensation from the back or groin area. Pain was relieved after receiving one-time dose of oxycodone. After being watched for a few hours, without any symptoms, he was discharged from the recommendations to see an orthopedic surgeon as soon as possible. Percocet was called in to our pharmacy. Discussed the management plan with Dr. Escobar. Review of Systems Constitutional: Reports: see HPI. Objective Last 24 Hrs of Vital Signs/I&O Vital Signs Date Time Temp Pulse Resp B/P B/P Pulse O2 O2 Flow FiO2 Mean Ox Delivery Rate 10/30 2225 98.4 57 20 145/73 96 Room Air 10/30 1453 97.1 58 20 142/74 98 Room Air 10/30 1055 62 134/58 10/30 0640 97.8 67 20 178/70 97 Room Air Intake & Output 10/31 0800 10/31 0000 10/30 1600 Intake Total 240 720 Output Total 350 400 Balance -110 320 Intake, Oral 240 720 Output, Urine 350 400 Patient 150 lb Weight Physical Exam General Appearance: No Acute Distress Other Physical Findings: General Exam: AAOx3, No acute distress, Skin: No rashes, no breakdown HEENT: PERRLA, EOMI Neck: Supple, No JVD No cervical lymphadenopathy CVS: Reg Rate, Normal S1,S2, No MGR Resp: Normal air entry, no ronchi/rales Abdomen: Soft, No tenderness, Normal Bowel Sounds, paraphimosis. Neuro: Normal Speech, Strength 5/5 b/l x 4 extremities, Sensation intact, CN III -XII NL, Reflexes 2+ Extremities: No cyanosis, pedal edema Current Medications: Current Medications Sig/Randy Start time Last Medication Dose Route Stop Time Status Admin Acetaminophen 650 MG Q6 PRN 10/29 0330 AC PO Amlodipine Besylate 5 MG DAILY 10/29 1000 AC 10/30 PO 1055 Aspirin 81 MG DAILY 10/29 1000 AC 10/30 PO 1055 Atorvastatin Calcium 20 MG 1700 10/29 1700 AC 10/30 PO 1545 Heparin Sodium 5,000 UNIT Q8 10/29 1648 AC 10/31 (Porcine) SC 0536 Lidocaine 1 PAT 1400 10/30 1400 AC 10/30 EXT 1544 Lidocaine 1 PAT DAILY 10/29 1440 DC 10/29 EXT 1527 Morphine Sulfate 1 MG Q6-PRN PRN 10/29 0330 DC 10/30 IV 0543 Oxycodone HCl 5 MG Q6 PRN 10/29 0330 AC 10/30 PO 2151 Last 24 Hrs of Lab/Main Results Last 24 Hrs of Labs/Mics: Laboratory Tests 10/30/16 0720: Anion Gap 11, Estimated GFR > 60, BUN/Creatinine Ratio 11.7 Assessment/Plan Assessment: He is a 70-year-old man with a past history of hypertension, hyperlipidemia is being evaluated for worsening back pain times approximately 2 weeks. The history is very unclear, but pain started around the same time when he had a mechanical fall in his basement, and he landed on his back. No head injury was reported at that time. Lives with his stepson and his . Recently moved from [place], and has most of his records in [place]. Reported unsteady gait. Also reported poor urinary stream likely from paraphimosis. Differential diagnosis: #1 hyponatremia #2 anemia #3 fall resulting in L1 compression fracture Below is the problem list and plan: #1 multiple falls-likely resulting in the back pain. Evidence of L1 compression fracture, although inadequate, would need conservative management. Lidoderm patch, and opiates as needed. Vitamin B12, TSH within normal limits. Fall precautions. PT evaluation, recommended home self care. Recommended follow-up with orthopedic physician, at the time of discharge. Percocet for pain relief. #2 hyponatremia-attributed this pattern of euvolemic hypotonic hyponatremia likely from hydrochlorothiazide use. Sodium 123--> 129. Other causes such as increased fluid intake, chronic hyponatremia are still in differential to be ruled out. Keep the patient on fluid restriction to rule out elevated areas production. #3 anemia-check Hemoccult. Baseline unknown at this time. Iron 55, TIBC 274, ferritin 115. Continue to monitor closely. #4 DVT prophylaxis-subcutaneous heparin. #5 Paraphimosis- urology evaluation at the time of discharge. #5 discharge to be discharged today. Problem List: 1. HTN (hypertension) 2. HLD (hyperlipidemia) 3. Paraphimosis 4. Hyponatremia Pain Ratin Pain Location: back Pain Goal: Pain 4 or less Pain Plan: tylenol, lidoderm, opiates Tomorrow's Labs & Rationales: no labs necessary JOSE ESCOBAR MD 10/31/16 1218: Attending MD Review Statement Attending Statement Attending MD Statement: examined this patient, discuss w/resident/PA/POWER CRANE OPERATOR, agreed w/resident/PA/POWER CRANE OPERATOR, reviewed EMR data (avail), discussed with nursing, discussed with case mgmt, amended to note Attending Assessment/Plan: Patient seen and examined. Resting comfortably and not in acute distress. No issues overnight. Reports her back pain has improved. He is able to ambulate with the aid of the skin. He has been cleared by the physical therapy service for discharge home. We'll able to obtain his records from [place]. It turns out his baseline sodium level is around 130. 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 With fluid restriction and disorientation of his hydrochlorothiazide his numbers have improved. He Is medically stable to be discharged home today. He has been provided referral to an outpatient primary care practice and advised to follow-up. Laboratory data all she shows a history of anemia. His hemoglobin level is stable. Advised to follow-up with the PCP for referral for routine colonoscopy screening. He reports that his last procedure was in the 90s. He reports taking iron pills in the past but is no longer taking them. Laboratory data is not suggestive of iron deficiency at this time.
--- NOTE | 2016-10-31 06:06 | Discharge Summary ---
Visit Information Visit Dates Admission Date: 10/29/16 Discharge Date: 10/31/16 Hospital Course Course Attending Physician: JOSE NUR M.D Primary Care Physician: PATIENT HAS NO PRIMARY CARE DR Hospital Course: Mr Sánchez is a 70-year-old man with a past history of hypertension, hyperlipidemia was evaluated for worsening back pain x danny 2 weeks prior to admission. The history wasn't very unclear, but pain started around the same time when he had a mechanical fall in his basement, and he landed on his back. No head injury was reported at that time. Lives with his step daughter and family. He recently moved from [place], and has most of his records were in different medical facilitites in [place], and hence couldnt obtain many records to review. He also reported poor urinary stream likely from paraphimosis. At the time of admission, vitals were stable, he was afebrile pulse rate 62, respirations 16, blood pressure 145/78, 100% on room air. Lab findings indicated WBC 7.9, hemoglobin 11.1 (baseline unknown), platelets 420, abnormal electrolytes-sodium 123 (hyponatremia-acute versus chronic unknown), which improved to 126 within 24 hours. Normal renal function BUN 7, serum creatinine 0.6. Potassium 3.8. Serum osmolality 255, urine osmolality 477, urine random sodium 118, FENa 0.8. Radiological findings-CT abdomen and pelvis-revealed sigmoid diverticulosis without evidence of diverticulitis. Cholelithiasis without evidence of cholecystitis was noted. CT lumbar spine without contrast-revealed mild superior endplate compression deformity at L1, suggestive of endplate compression fracture (inadequate evidence, would need an evaluation by MRI), superior and inferior endplate height loss at L2. No sacral fractures were noted. Differential diagnosis: #1 hyponatremia( ? reset ) #2 anemia #3 fall resulting in L1 compression fracture Below is the problem list and plan: #1 multiple falls - which was likely the cause of back pain. Evidence of L1 compression fracture, although inadequate, would need conservative management in the future. Lidoderm patch, and opiates as needed were given at the time of discharge. He did not have any signs and symptoms s/o cord compression. Vitamin B12, TSH within normal limits. Physical therapy evaluation was done, who assessed that he could be discharged home. Discussed with the pt, and the family about the follow up appointments, and fall precautions. #2 hyponatremia- initially attributed this pattern of euvolemic hypotonic hyponatremia likely from hydrochlorothiazide use or reset osmostat. Sodium 123-- > 129 ( 10/28-->10/31). He was also kept on fluid restriction; upon reviewing some medical records from [place], it seemed that his baseline sodium is around 130. Pt was advised to be on fluid restriction, and be reevaluated by the PCP within a week. Hydrochlorthiazide was changed to amlodipine. BP was adequately controlled on amlodipine. #3 anemia- Baseline unknown at this time. Iron 55, TIBC 274, ferritin 115. Continued on Fe supplements. #4 Paraphimosis- No signs of infection was seen. Urology evaluation as an outpatient. Allergies: Coded Allergies: No Known Allergies (10/16/16) Pertinent Lab Results: CAT - CT LUMB SPINE WO IV CONTRAST : 10/29/16- There is superior and inferior endplate height loss at L2, along the inferior endplate secondary to Schmorl's node herniation which appears stable in comparison to the 10/16/2016 CT. There is mild superior endplate height loss at L1 that is not definitively seen on the previous radiographs and that can be followed with MRI in the setting of back pain. There is a chronic appearing superior endplate Schmorl's node at L4. No definite sacral fractures are identified. The sacroiliac joints are unremarkable. Excretory contrast within the renal collecting systems bilaterally. There is abdominal aortic atherosclerotic calcification. There is sigmoid diverticulosis and a small amount of nonspecific free fluid within the pelvis. Lumbar alignment is maintained. There is severe disc space loss at L1-L2, L3-L4, and there is moderate disc space loss at L4-L5 and L5-S1. At L4-L5 there is a diffuse disc osteophyte complex that along with bilateral hypertrophic facet arthropathy results in moderate right and mild left foraminal stenosis. No additional significant foraminal stenosis within the lumbar spine. No high-grade bony foraminal stenosis is evident. CAT - CT ABD & PELVIS W IV CONTRAST 10/28/16-2153 Sigmoid diverticulosis without evidence of diverticulitis. Cholelithiasis without evidence of cholecystitis. -- Disposition Summary Disposition Principal Diagnosis: Back pain secondary to fall Additional Diagnosis: Hyponatremia Discharge Disposition: home or self care Discharge Instructions General Discharge Information Code Status: Full Code Patient's Diet: regular diet Patient's Activity: as tolerated Follow-Up Instructions/Appts: 1. Please see your PCP within one week of discharge. 2. Please see the urologist within one week of dischare. 3. Pleaes see your orthopedic surgeon within one week of discharge. 4. Please restrict your fluids to approximately 1200ml per day. Please discuss with your PCP about a repeat blood work after one week. Medications at Discharge Discharge Medications: Stop taking the following medications: Hydrochlorothiazide (Hydrochlorothiazide) 25 MG TABLET ORAL DAILY Continue taking these medications: Ferrous Sulfate (Ferrous Sulfate) 325 MG (65 MG IRON) TABLET 1 Tablet ORAL DAILY Comments: NOT GIVEN IN HOSPITAL Acetaminophen (Mapap) 500 MG TABLET 2 Tablet ORAL TWICE DAILY as needed for PAIN Comments: NOT GIVEN IN HOSPITAL Dexlansoprazole (Dexilant) 30 MG BP 1 Capsule ORAL DAILY Comments: NOT GIVEN IN HOSPITAL Aspirin (Aspirin*) 81 MG TAB.CHEW 1 Tablet ORAL DAILY Comments: Last Taken: 10/31/16 Time: 1100 Atorvastatin Calcium (Atorvastatin Calcium) 20 MG TABLET 1 Tablet ORAL DAILY Comments: Last Taken: 10/30/16 Time: 400 PM Cholecalciferol (Vitamin D3) (Vitamin D3) 5,000 UNIT TABLET 1 Tablet ORAL DAILY Comments: NOT GIVEN IN HOSPITAL Multivit-Min/FA/Lycopen/Lutein (Centrum Silver Tablet) 0.4 MG-300 MCG-250 MCG TABLET 1 Tablet ORAL DAILY Comments: NOT GIVEN IN HOSPITAL Diphenhydramine HCl (Benadryl) 25 MG CAPSULE 1 Capsule ORAL Every night as needed for allergy Comments: NOT GIVEN IN HOSPITAL Start taking the following new medications: Amlodipine Besylate (Amlodipine Besylate) 5 MG TABLET 1 Tablet ORAL DAILY Qty = 30 Refills = 3 Instructions: .. Comments: NOT GIVEN IN HOSPITAL Oxycodone HCl/Acetaminophen (Percocet 5-325 MG Tablet) 5 MG-325 MG TABLET 1 Tablet ORAL TWICE DAILY as needed for severe pain Qty = 10 No Refills Instructions: please take your medications as prescribed Comments: NOT GIVEN IN HOSPITAL Lidocaine (Lidoderm) 5 % ADH..PATCH 1 Patch ON SKIN DAILY Qty = 10 No Refills Instructions: .. Comments: Last Taken:10/31/16 Time: 1400 Copies To: WESLEY LINDSAY,ABIMAEL Attending Review Statement Documenting Attending: JOSE NUR M.D
[2016-10-31 06:17] VITALS: BP 157/70
[2016-10-31] MEDS ORDERED: AMLODIPINE BESYL5 M1 PO ×3 (08:20→15:52)
--- NOTE | 2016-10-31 08:25 | Patient Discharge Instructions ---
Discharge Instructions General Discharge Information You were seen/treated for: - low back pain Watch for these problems: 1. worsening back pain 2. chest pain, shortness of breath Special Instructions: 1. Please see your PCP within one week of discharge. 2. Please see the urologist within one week of dischare. 3. Pleaes see your orthopedic surgeon within one week of discharge. 4. Please restrict your fluids to approximately 1200ml per day. Please discuss with your PCP about a repeat blood work after one week. Acute Coronary Syndrome Inclusion Criteria At DC or during hospital stay patient has or had the following: ACS DIAGNOSIS No Discharge Core Measures Meds if any: Prescribed or Continued at Discharge Meds if any: NOT Prescribed or Continued at Discharge Congestive Heart Failure Inclusion Criteria At DC or during hospital stay patient has or had the following: CHF DIAGNOSIS No Discharge Core Measures Meds if any: Prescribed or Continued at Discharge Meds if any: NOT Prescribed or Continued at Discharge Cerebrovascular accident Inclusion Criteria At DC or during hospital stay patient has or had the following: CVA/TIA Diagnosis No Discharge Core Measures Meds if any: Prescribed or Continued at Discharge Meds if any: NOT Prescribed or Continued at Discharge Venous thromboembolism Inclusion Criteria VTE Diagnosis No VTE Type NONE VTE Confirmed by (Test) NONE Discharge Core Measures - Per Current guidelines, there needs to be overlap - treatment for the first 5 days of Warfarin therapy. - If discharged on Warfarin prior to 5 days of - overlap therapy, the patient will need to be - assessed for post discharge needs including - *Post discharge parental anticoagulation - *Warfarin and/or parental anticoagulation education - *Follow up date to check INR post discharge At least 5 days overlap therapy as Inpatient No Meds if any: Prescribed or Continued at Discharge Note: Overlap Therapy is Warfarin and Anticoagulant Meds if any: NOT Prescribed or Continued at Discharge
[2016-10-31] MEDS ORDERED: LIDODERM1 EACH EXT ×3 (08:26→15:52)
[2016-10-31] MEDS ORDERED: PERCOCET 5-3251 EACH PO ×2 (15:06→15:52)
[2016-10-31 15:09] VITALS: BP 136/66
== END 2016-10-31 17:05 | DRG 552 ==
LOC: ERH 20:52 → ERHI 10-29 02:28 → 2NB 10-29 02:28 → ERHI 10-29 10:00 → ENRESERV 10-29 16:11 → ENTRNSPT 10-29 16:58 → 2NB 10-29 17:08 → CMPTRNSPT 10-29 17:44 → ENPENDDIS 10-31 10:50 → 2NB 10-31 17:05
PROVIDERS: Emergency Medicine; Student in an Organized Health Care Education/Training Program; ADMIT Internal Medicine
DX: S32.019A Unspecified fracture of first lumbar vertebra, initial encounter for closed fracture (principal); E87.1 Hypo-osmolality and hyponatremia; D64.9 Anemia, unspecified; E86.0 Dehydration; I10 Essential (primary) hypertension; N47.2 Paraphimosis; K21.9 Gastro-esophageal reflux disease without esophagitis; E78.5 Hyperlipidemia, unspecified; F17.210 Nicotine dependence, cigarettes, uncomplicated; M51.36 Other intervertebral disc degeneration, lumbar region; M51.35 Other intervertebral disc degeneration, thoracolumbar region; K57.90 Diverticulosis of intestine, part unspecified, without perforation or abscess without bleeding; K80.20 Calculus of gallbladder without cholecystitis without obstruction; W18.30XA Fall on same level, unspecified, initial encounter; Y92.018 Other place in single-family (private) house as the place of occurrence of the external cause
CPT/HCPCS: 2NBSP; 84133; 84300; 36415; 74177; 81001; 82436; 82570; 96360; 97116-GO; 97161-GP; 97530-GO; J1644; J3490